=== PATIENT | male | born 1965 | race Caucasian/White ===

== ENCOUNTER → 2019-05-18 | Outpatient (CLI) | payer OTHER ==
--- NOTE | 2019-05-18 17:14 | PCVCIMAG ---
APPROVED REPORT Study performed: 05/18/2019 14:45:25 Exam: Stress Echocardiogram Indication: elevated coronary calcium score, atypical chest pain, fam hx early CAD Patient Location: Echo lab Stress Nurse: Claire Mcintosh RN Status: routine Ht: 6 ft 1 in HR: 45 bpm BP: 110/76 mmHg Rhythm: Bradycardia Procedure The patient underwent an Exercise Stress Test using the Hu Protocol. Blood pressure, heart rate, and EKG were monitored. An Echocardiogram was performed by collection systems technician in four stages in quad fashion. At peak stress, four selected images were obtained and placed side by side with resting images for comparison. Stress Test Details Stress Test: Exercise stress testing was performed using a Hu protocol. HR Resting HR: 45 bpmMax Heart Rate (APMHR): 169 bpm Max HR Achieved: 176 bpmTarget HR (85% APMHR): 143 bpm % of APMHR: 104 Recovery HR: 86 bpm HR response to stress: Normal HR response to stress BP Resting BP: 110/76 mmHg Max BP: 160/80 mmHg Recovery BP: 128/66 mmHg BP response to stress: Normal blood pressure response to stress. ECG Resting ECG: Sinus Bradycardia Stress ECG: Sinus Rhythm ST Change: Normal Arrhythmia: Atrial fibrillation, SVT, PACs Recovery ECG: Sinus Rhythm Recovery ST Change: Normal Recovery Arrhythmia: a fib that resolved Clinical Reason for Termination: Maximal effort Stress Symptoms: Dyspnea Exercise duration: 10 min 30 sec Highest Stage Achieved: Stage 4: 4.2 mph at 16% grade. Exercise capacity: 13.7 METs Overall Exercise Capacity for Age: Normal Scale: Active Angina Score: None Pre-Stress Echo The resting Echocardiogram showed normal left ventricular contractility with an estimated Ejection Fraction of about >55%. The resting echocardiogram demonstrated normal wall motion in all wall segments. Post-Stress Echo The stress Echocardiogram showed normal left ventricular contractility with an estimated Ejection Fraction of about 60-65%. Compared to rest, there were no stress-induced wall motion abnormalities. Clinical No clinical or ECG evidence for ischemia. Conclusion Clinical Response: Non-ischemic Exercise Capacity: Average Stress ECG Response: Non-ischemic Stress Echo Images: Non-ischemic The left ventricle is normal in size and wall thickness in both the rest and stress images. Mild mitral regurgitation. Mild aortic insufficiency without stenosis. Mild tricuspid regurgitation with PAP of 33 mmHg. Trace pulmonic regurgitation. Other Information Study Quality: Adequate <Conclusion> The left ventricle is normal in size and wall thickness in both the rest and stress images. Mild mitral regurgitation. Mild aortic insufficiency without stenosis. Mild tricuspid regurgitation with PAP of 33 mmHg. Trace pulmonic regurgitation.
== END | disposition home or self-care (01) ==
LOC: PCVCIMAG 14:47
PROVIDERS: ATTEND Internal Medicine Cardiovascular Disease
DX: I08.3 Combined rheumatic disorders of mitral, aortic and tricuspid valves (principal); E78.5 Hyperlipidemia, unspecified; E03.9 Hypothyroidism, unspecified; E78.00 Pure hypercholesterolemia, unspecified; Z82.49 Family history of ischemic heart disease and other diseases of the circulatory system; Z90.09 Acquired absence of other part of head and neck; Z88.8 Allergy status to other drugs, medicaments and biological substances; Z88.1 Allergy status to other antibiotic agents
CPT/HCPCS: 93325; 93351